=== PATIENT | female | born 1995 | race Caucasian/White ===

== ENCOUNTER 2018-09-10 12:37 | Emergency (ER) | payer MEDICAID ==
[~2018-09-10] VITALS: Ht 170.2 cm; Wt 61.4 kg
[2018-09-10] MEDS ORDERED: PREN1TAB28 PO (13:13)
[2018-09-10] MEDS ORDERED: METOCLOPRAMIDE 5 MG/ML, 2ML IVPush ONE (13:30)
[2018-09-10] MEDS ORDERED: SODIUM CHLORIDE FLUSH 10ML SYR IVF ONE (13:30)
[2018-09-10] MEDS ORDERED: SODIUM CHLORIDE 0.9% 1,000ML IVBOLUS ONE (13:30)
[2018-09-10] MEDS ORDERED: METOCLOPRAMIDE 5 MG/ML, 2ML ONE (13:37)
[2018-09-10 14:08] LABS: ALANINE AMINOTRANSFERASE 17 U/L (12-78); ALBUMIN 4.2 g/dL (3.4-5.0); ANION GAP 14 mmol/L (5-15); CALCIUM 9.3 mg/dL (8.5-10.1); CHLORIDE 105 mmol/L (98-107); CREATININE 0.68 mg/dL (0.55-1.02)
[2018-09-10 14:18] LABS: BASOPHILS # (AUTO) 0.03 x10^3/uL (0-0.1); BASOPHILS % (AUTO) 0 % (0-1); EOSINOPHILS # (AUTO) 0.02 x10^3/uL (0-0.4); EOSINOPHILS % (AUTO) 0 % (1-7); LYMPHOCYTES % (AUTO) 15 % (22-44); MD NO; MEAN CORPUSCULAR HEMOGLOBIN 30.6 pg (27.0-34.8); MEAN CORPUSCULAR HGB CONC 33.8 g/dL (32.4-35.8); MEAN CORPUSCULAR VOLUME 90.5 fL (80-100); MEAN PLATELET VOLUME 8.7 fL (7.4-10.4); MONOCYTES # (AUTO) 0.89 x10^3/uL (0.2-0.8); MONOCYTES % (AUTO) 8 % (2-9); NEUTROPHILS # (AUTO) 9.14 x10^3/uL (1.8-6.8); NEUTROPHILS % (AUTO) 77 % (42-75); PLATELET COUNT 282 x10^3/uL (130-400); RED BLOOD COUNT 4.82 x10^6/uL (3.82-5.3); RED CELL DISTRIBUTION WIDTH 13.3 % (9.6-15.2)
[2018-09-10 14:28] LABS: ALKALINE PHOSPHATASE 41 U/L (45-117); BILIRUBIN,TOTAL 0.8 mg/dL (0.2-1.0)
[2018-09-10 15:32] LABS: CULTURE INDICATED? YES; MICROSCOPIC INDICATED
[2018-09-10] MEDS ORDERED: ONDANSETRON ODT 4 MG PO ONE (16:00)
[2018-09-10] MEDS ORDERED: PROMETHAZINE 25 MG/ML, 1ML ONE (16:13)
[2018-09-10] MEDS ORDERED: ONDANSETRON ODT 4 MG ONE (16:13)
[2018-09-10] MEDS ORDERED: CEFTRIAXONE PMX 1GM/50ML 50 ML ONE (16:13)
[2018-09-10] MEDS ORDERED: CEFTRIAXONE PMX 1GM/50ML 50 ML IV ONE (16:30)
[2018-09-10] MEDS ORDERED: PROMETHAZINE 25 MG/ML, 1ML IM ONE (16:30)
[2018-09-10 16:56] VITALS: BP 95/60
== END 2018-09-10 17:31 | disposition home or self-care (01) ==
LOC: ED 13:24
DX: O21.1 Hyperemesis gravidarum with metabolic disturbance (principal); Z3A.09 9 weeks gestation of pregnancy
CPT/HCPCS: 36415; 76801; 80053; 81001; 84702; 85025; 86901; 87086; 96361; 96365; 96366; 96372; 96375; 99285; J0696; J2550; J2765; J7030; Q0162

== ENCOUNTER 2019-03-26 06:31 | Inpatient (IN) | payer MEDICAID ==
[~2019-03-26] VITALS: Ht 170.2 cm; Wt 76.8 kg
[~2019-03-26 06:31] MED LIST: PREN1TAB28 PO
[2019-03-26 06:38] VITALS: BP 116/81
[2019-03-26] MEDS ORDERED: OXYTOCIN 30U/ 0.9% NaCL 500ML 500 ML IV ONE (06:58)
[2019-03-26] MEDS ORDERED: LACTATED RINGERS 1,000 ML IV SCH (06:58)
[2019-03-26] MEDS ORDERED: TERBUTALINE 1 MG/ML, 1ML IVPush PRN ×2 (07:00)
[2019-03-26] MEDS ORDERED: CALCIUM CARBONATE 500 MG TAB.CHEW PO PRN (07:00)
[2019-03-26] MEDS ORDERED: ONDANSETRON 2MG/ML, 2ML IVPush PRN (07:00)
[2019-03-26] MEDS ORDERED: NEWBORN KIT ONE (07:20)
[2019-03-26] MEDS ORDERED: OXYTOCIN 30U/ 0.9% NaCL 500ML 500 ML ONE (07:20)
[2019-03-26] MEDS ORDERED: FENTANYL PF 100 MCG/2ML ONE ×2 (07:21→08:47)
[2019-03-26 07:29] LABS: BASOPHILS # (AUTO) 0.02 x10^3/uL (0-0.1); BASOPHILS % (AUTO) 0 % (0-1); EOSINOPHILS # (AUTO) 0.04 x10^3/uL (0-0.4); EOSINOPHILS % (AUTO) 0 % (1-7); LYMPHOCYTES # (AUTO) 2.26 x10^3/uL (1-3.4); LYMPHOCYTES % (AUTO) 15 % (22-44); MD NO; MEAN CORPUSCULAR HGB CONC 33.9 g/dL (32.4-35.8); MEAN CORPUSCULAR VOLUME 91.4 fL (80-100); MEAN PLATELET VOLUME 10.1 fL (7.4-10.4); MONOCYTES # (AUTO) 0.83 x10^3/uL (0.2-0.8); MONOCYTES % (AUTO) 6 % (2-9); NEUTROPHILS # (AUTO) 11.58 x10^3/uL (1.8-6.8); NEUTROPHILS % (AUTO) 79 % (42-75); PLATELET COUNT 272 x10^3/uL (130-400); RED BLOOD COUNT 4.39 x10^6/uL (3.82-5.3); RED CELL DISTRIBUTION WIDTH 12.9 % (9.6-15.2)
[2019-03-26] MEDS: FENTANYL PF 100 MCG/2ML IVPush PRN ×2 (07:30→08:49)
[2019-03-26] MEDS ORDERED: OXYTOCIN 30U/ 0.9% NaCL 500ML 500 ML IV SCH (10:33)
[2019-03-26] MEDS ORDERED: IBUPROFEN 600 MG TABLET ONE (10:36)
[2019-03-26] MEDS: OXYTOCIN 30U/ 0.9% NaCL 500ML 500 ML IV SCH ×2 (10:52→20:52)
[2019-03-26] MEDS ORDERED: PRENATAL VIT/IRON/FA 1 EACH TABLET PO SCH (11:00)
[2019-03-26] MEDS ORDERED: DOCUSATE 100 MG CAPSULE PO PRN (11:00)
[2019-03-26] MEDS ORDERED: MISOPROSTOL 200 MCG TABLET PR PRN (11:00)
[2019-03-26] MEDS ORDERED: ONDANSETRON 2MG/ML, 2ML IV PRN (11:00)
[2019-03-26] MEDS ORDERED: IBUPROFEN 600 MG TABLET PO PRN (11:00)
[2019-03-26] MEDS ORDERED: ACETAMINOPHEN 325 MG TABLET PO PRN ×2 (11:00)
[2019-03-26] MEDS ORDERED: OXYcodone/APAP 5/325MG TABLET PO PRN ×2 (11:00)
[2019-03-26 11:15] VITALS: BP 109/68
[2019-03-26 15:15] VITALS: BP 118/81
[2019-03-26] MEDS: IBUPROFEN 600 MG TABLET PO PRN (17:07)
[2019-03-26 17:14] LABS: MEAN CORPUSCULAR HEMOGLOBIN 30.9 pg (27.0-34.8); MEAN CORPUSCULAR HGB CONC 33.8 g/dL (32.4-35.8); MEAN CORPUSCULAR VOLUME 91.5 fL (80-100); MEAN PLATELET VOLUME 10.1 fL (7.4-10.4); PLATELET COUNT 282 x10^3/uL (130-400); RED BLOOD COUNT 4.44 x10^6/uL (3.82-5.3)
[2019-03-26 17:35] LABS: BASOPHILS # (AUTO) 0.01 x10^3/uL (0-0.1); BASOPHILS % (AUTO) 0 % (0-1); EOSINOPHILS # (AUTO) 0.03 x10^3/uL (0-0.4); EOSINOPHILS % (AUTO) 0 % (1-7); LYMPHOCYTES # (AUTO) 2.47 x10^3/uL (1-3.4); LYMPHOCYTES % (AUTO) 12 % (22-44); MD SCAN; MONOCYTES % (AUTO) 7 % (2-9); NEUTROPHILS # (AUTO) 16.73 x10^3/uL (1.8-6.8); NEUTROPHILS % (AUTO) 81 % (42-75)
[2019-03-26 21:45] VITALS: BP 101/69
[2019-03-27] MEDS: IBUPROFEN 600 MG TABLET PO PRN (00:06)
[2019-03-27 01:00] VITALS: BP 102/68
[2019-03-27 05:33] VITALS: BP 102/62
[2019-03-27] MEDS: OXYTOCIN 30U/ 0.9% NaCL 500ML 500 ML IV SCH (06:52)
[2019-03-27 08:30] VITALS: BP 114/74
[2019-03-27] MEDS ORDERED: PRENATAL VIT/IRON/FA 1 EACH TABLET PO SCH (09:00)
== END 2019-03-27 12:30 | disposition home or self-care (01) | DRG 807 ==
LOC: LDOP 06:31 → LDIP 06:56 → 2NW 11:05
PROVIDERS: ADMIT Obstetrics & Gynecology; ATTEND Obstetrics & Gynecology
PROC: 10E0XZZ Delivery of Products of Conception, External Approach (ICD-10-PCS; principal; 2019-03-26)
PROC: 10907ZC Drainage of Amniotic Fluid, Therapeutic from Products of Conception, Via Natural or Artificial Opening (ICD-10-PCS; 2019-03-26)
DX: O80 Encounter for full-term uncomplicated delivery (principal); Z37.0 Single live birth; Z3A.37 37 weeks gestation of pregnancy
CPT/HCPCS: 36415; 85025; 86850; 86900; G0378; J3010; J2590; J7120